=== PATIENT | female | born 1980 | race African-American/Black ===

== ENCOUNTER 2017-05-10 18:00 | Inpatient (IN) | payer OTHER ==
[~2017-05-10] VITALS: Ht 160 cm; Wt 65.8 kg
[2017-05-10] MEDS ORDERED: PREN-546 PO (18:20)
[2017-05-10] MEDS ORDERED: LACTATED RINGERS 1,000 ML IV SCH (18:21)
[2017-05-10 19:06] LABS: BASOPHILS # (AUTO) 0.1 K/uL (0.00-0.22); BASOPHILS % (AUTO) 0.4 % (0.0-2.0); EOSINOPHILS # (AUTO) 0.3 K/uL (0-0.4); EOSINOPHILS % (AUTO) 1.9 % (0.0-4.0); HEMATOCRIT 34.3 % (36-48); HEMOGLOBIN 11.1 g/dL (12.0-16.0); LYMPHOCYTES # (AUTO) 0.9 K/uL (2.5-16.5); MEAN CORPUSCULAR HEMOGLOBIN 28 pg (27-31); MEAN CORPUSCULAR HGB CONC 32 g/dL (33-37); MEAN CORPUSCULAR VOLUME 86 fL (80-94); MONOCYTES # (AUTO) 0.7 K/uL (0.8-1.0); MONOCYTES % (AUTO) 5.6 % (1.7-9.3); NEUTROPHILS # (AUTO) 11.4 K/uL (1.8-7.7); NEUTROPHILS % (AUTO) 85.1 % (42.2-75.2); PLATELET COUNT (AUTO) 284 K/uL (140-450); RED BLOOD CELL COUNT(AUTO) 4.01 MIL/uL (4.20-5.40); RED CELL DISTRIBUTION WIDTH 15.2 % (11.6-13.7); WHITE BLOOD COUNT (AUTO) 13.4 K/uL (4.8-10.8)
[2017-05-10 19:07] LABS: HIV RAPID SCREEN NON-REACTIVE (NON REACTIV)
[2017-05-10] MEDS ORDERED: PHENYLEPHRINE 10 MG/ML VIAL ONE (19:24)
[2017-05-10] MEDS ORDERED: BUPIVACAINE-MPF 0.75% 10 ML VIAL INJ ONE (19:24)
[2017-05-10] MEDS ORDERED: MORPHINE PRES FREE 10 MG/10 ML AMP IV ONE (19:37)
[2017-05-10] MEDS ORDERED: fentaNYL 0.05 MG/ML VIAL ONE (19:37)
[2017-05-10] MEDS ORDERED: ceFAZolin 1,000 MG VIAL IVP ONE (19:42)
[2017-05-10] MEDS ORDERED: CITRIC ACID/SODIUM CITRATE 30 ML UDC ONE (19:43)
[2017-05-10] MEDS ORDERED: KETOROLAC 60 MG/2 ML VIAL IM PRN (20:00)
[2017-05-10] MEDS ORDERED: NALOXONE 0.4 MG/ML VIAL IVP PRN ×3 (20:00)
[2017-05-10] MEDS ORDERED: NALBUPHINE 10 MG/ML AMP IVP PRN (20:00)
[2017-05-10] MEDS ORDERED: ONDANSETRON 4 MG/2 ML VIAL IVP PRN ×2 (20:00)
[2017-05-10] MEDS ORDERED: ONDANSETRON 4 MG/2 ML VIAL ONE (20:25)
[2017-05-10] MEDS ORDERED: diphenhydrAMINE 50 MG/ML VIAL ONE (20:25)
[2017-05-10] MEDS ORDERED: OXYTOCIN 20 UNITS/LR PREMIX 1,000 ML IV ONE (20:25)
[2017-05-10] MEDS: diphenhydrAMINE 50 MG/ML VIAL IVP PRN (20:40)
[2017-05-11] MEDS ORDERED: IBUPROFEN 800 MG TAB PO PRN (01:00)
[2017-05-11] MEDS ORDERED: HYDROcodone/APAP 5/325 MG 1 TAB TAB PO PRN (01:00)
[2017-05-11] MEDS ORDERED: OXYTOCIN 20 UNITS/LR PREMIX 1,000 ML IV SCH ×2 (01:00→09:10)
[2017-05-11] MEDS ORDERED: TEMAZEPAM 15 MG CAP PO PRN (01:00)
[2017-05-11] MEDS ORDERED: SIMETHICONE 80 MG TAB.CHEW PO PRN (01:00)
[2017-05-11] MEDS ORDERED: OXYTOCIN 20 UNITS/LR PREMIX 1,000 ML IV ONE (01:55)
[2017-05-11] MEDS: diphenhydrAMINE 50 MG/ML VIAL IVP PRN ×2 (03:23→08:23)
[2017-05-11 06:27] LABS: BASOPHILS % (AUTO) 0.2 % (0.0-2.0); EOSINOPHILS # (AUTO) 0.3 K/uL (0-0.4); EOSINOPHILS % (AUTO) 1.8 % (0.0-4.0); HEMOGLOBIN 8.8 g/dL (12.0-16.0); LYMPHOCYTES # (AUTO) 0.9 K/uL (2.5-16.5); LYMPHOCYTES % (AUTO) 5.5 % (20.5-51.1); MEAN CORPUSCULAR HEMOGLOBIN 28 pg (27-31); MEAN CORPUSCULAR HGB CONC 32 g/dL (33-37); MEAN CORPUSCULAR VOLUME 86 fL (80-94); MONOCYTES # (AUTO) 0.8 K/uL (0.8-1.0); MONOCYTES % (AUTO) 4.5 % (1.7-9.3); NEUTROPHILS # (AUTO) 15.2 K/uL (1.8-7.7); PLATELET COUNT (AUTO) 264 K/uL (140-450); RED BLOOD CELL COUNT(AUTO) 3.16 MIL/uL (4.20-5.40); RED CELL DISTRIBUTION WIDTH 14.9 % (11.6-13.7)
[2017-05-11 07:48] LABS: WHITE BLOOD COUNT (AUTO) 17.2 K/uL (4.8-10.8)
[2017-05-11] MEDS ORDERED: LACTATED RINGERS 1,000 ML IV ONE (16:05)
[2017-05-11] MEDS: oxyCODONE/APAP 5/325 MG 1 TAB TAB PO PRN (19:10)
[2017-05-11] MEDS: diphenhydrAMINE 50 MG CAP PO PRN (19:11)
[2017-05-11] MEDS: DOCUSATE SOD/SENNA 50/8.6 MG 1 TAB PO SCH (22:07)
[2017-05-12] MEDS ORDERED: OXYTOCIN 20 UNITS/LR PREMIX 1,000 ML IV SCH (01:00)
[2017-05-12] MEDS: oxyCODONE/APAP 5/325 MG 1 TAB TAB PO PRN ×2 (03:08→15:28)
[2017-05-12] MEDS: diphenhydrAMINE 50 MG CAP PO PRN (03:08)
[2017-05-12] MEDS ORDERED: IBUP-2213 PO (09:16)
[2017-05-12] MEDS: DOCUSATE SOD/SENNA 50/8.6 MG 1 TAB PO SCH (20:58)
[2017-05-13] MEDS: oxyCODONE/APAP 5/325 MG 1 TAB TAB PO PRN (03:47)
[2017-05-13 13:46] LABS: RAPID PLASMA REAGIN NON-REACTIVE (Non Reactiv)
== END 2017-05-13 11:55 | disposition home or self-care (01) | DRG 540 ==
LOC: MLD 18:00 → MFCC 19:30
PROVIDERS: ADMIT Obstetrics & Gynecology; ATTEND Obstetrics & Gynecology
PROC: 10D00Z1 Extraction of Products of Conception, Low, Open Approach (ICD-10-PCS; principal; 2017-05-10 07:05)
DX: O34.211 Maternal care for low transverse scar from previous cesarean delivery (principal); K21.9 Gastro-esophageal reflux disease without esophagitis; O99.62 Diseases of the digestive system complicating childbirth; O69.81X0 Labor and delivery complicated by cord around neck, without compression, not applicable or unspecified; Z37.0 Single live birth; Z3A.39 39 weeks gestation of pregnancy
CPT/HCPCS: 36415; 85025; 86592; 86762; 86886; 86900; 86901; 87340; J0690; J1200; J1885; J2270; J2370; J2405; J2590; J3010; J3490; J7060; J7120; Q0163

== ENCOUNTER 2017-12-13 16:59 | Emergency (ER) | payer OTHER ==
[~2017-12-13] VITALS: Ht 162.6 cm; Wt 63.5 kg
[~2017-12-13 16:59] MED LIST: IBUP-2213 PO
[2017-12-13 17:18] VITALS: BP 128/79
--- NOTE | 2017-12-13 17:18 | NUR ---
PT TAKEN TO CHAIR A
--- NOTE | 2017-12-13 17:25 | NUR ---
LEFT SHOULDER PAIN SINCE LAST NIGHT HELPING HER DAD FROM FALLING. DENIES N/V/D; SKIN IS PINK/WARM/DRY; AAOX4 WITH EVEN AND STEADY GAIT; LUNGS CLEAR BL; HR EVEN AND REGULAR; PT DENIES ANY FEVER, CP, SOB, OR COUGH AT THIS TIME; PATIENT STATES PAIN OF 10/10 AT THIS TIME; VSS; PATIENT POSITIONED FOR COMFORT; HOB ELEVATED; BEDRAILS UP X2; BED DOWN. ER MD MADE AWARE OF PT STATUS.
[2017-12-13 17:48] VITALS: BP 128/79
--- NOTE | 2017-12-13 17:49 | NUR ---
Patient discharged with v/s stable. Written and verbal after care instructions given and explained. Patient alert, oriented and verbalized understanding of instructions. Ambulatory with steady gait. All questions addressed prior to discharge. ID band removed. Patient advised to follow up with PMD. Rx of NAPROSYN, NORCO given. Patient educated on indication of medication including possible reaction and side effects. Opportunity to ask questions provided and answered.
== END 2017-12-13 17:49 | disposition home or self-care (01) ==
LOC: MED 16:59
DX: M25.512 Pain in left shoulder (principal); Z88.0 Allergy status to penicillin
CPT/HCPCS: 99283

== ENCOUNTER 2018-10-28 23:51 | Emergency (ER) | payer OTHER ==
[~2018-10-28] VITALS: Ht 162.6 cm; Wt 68.0 kg
[2018-10-28 23:55] VITALS: BP 127/94
--- NOTE | 2018-10-28 23:58 | NUR ---
PT TAKEN TO BED 2
--- NOTE | 2018-10-29 | NUR ---
PT IS A 38 Y/O FEMALE WHO PRESENTS TO THE ED C/O EARACHE. PT STATES THAT IT HAS BEEN GOING ON X1 WEEK. PT REPORTS 7/10 ACHING EAR PAIN THAT DOES NOT RADIATE. PT DENIES CP, SOB, N/V/D. PT AWAKE AND ALERT, RR EVEN/UNLABORED, PT REPOSITIONED FOR COMFORT, BED IN LOWEST POSITION. ER MD DR. CAN NOTIFIED. WILL CONTINUE TO MONITOR.
--- NOTE | 2018-10-29 01:32 | NUR ---
Dr. Ybarra evaluating patient at bedside.
[2018-10-29] MEDS ORDERED: KETOROLAC 60 MG/2 ML VIAL IM ONE (01:35)
[2018-10-29 02:16] VITALS: BP 125/88
--- NOTE | 2018-10-29 02:16 | NUR ---
Patient discharged with v/s stable. Written and verbal after care instructions given and explained. Patient alert, oriented and verbalized understanding of instructions. Ambulatory with steady gait. All questions addressed prior to discharge. ID band removed. Patient advised to follow up with PMD. Rx of PREDNISONE,CORTISPORIN, MOTRIN given. Patient educated on indication of medication including possible reaction and side effects. Opportunity to ask questions provided and answered.
== END 2018-10-29 02:16 | disposition home or self-care (01) ==
LOC: MED 23:51
DX: H60.91 Unspecified otitis externa, right ear (principal); R05 Cough; Z79.899 Other long term (current) drug therapy
CPT/HCPCS: 96372; 99283; J1885